=== PATIENT | female | born 1990 | race Caucasian/White ===

== ENCOUNTER → 2025-09-04 08:28 | Outpatient (CLI) | payer OTHER ==
[~2025-09-04 08:28] MED LIST: PRENATAL TABLE1 EAC3 PO
== END | disposition home or self-care (01) ==
LOC: PRENATAL 08:28
PROVIDERS: ATTEND Obstetrics & Gynecology Maternal & Fetal Medicine
DX: O44.02 Complete placenta previa NOS or without hemorrhage, second trimester (principal); O09.522 Supervision of elderly multigravida, second trimester